=== PATIENT | male | born 1940 | race Two or more races ===

== ENCOUNTER 2023-02-28 09:51 | Outpatient (CLI) | payer MEDICARE | END 2023-02-28 23:59 | disposition home health service (06) | LOC: WOU 09:51 | PROVIDERS: ATTEND Specialist | DX: L98.8 Other specified disorders of the skin and subcutaneous tissue (principal); M32.9 Systemic lupus erythematosus, unspecified; M19.90 Unspecified osteoarthritis, unspecified site | CPT/HCPCS: G0463 ==